=== PATIENT | male | born 1985 | race Caucasian/White ===

== ENCOUNTER 2017-01-12 17:57 | Emergency (ER) | payer OTHER ==
[2017-01-12 18:11] VITALS: PULSE 70
[2017-01-12] MEDS ORDERED: IOPAMIDOL (ISOVUE-300) 100 ML BTL ONE (18:33)
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
[2017-01-12] MEDS ORDERED: IBUPROFEN 600 MG TAB PO ONE (19:01)
[2017-01-12 22:18] VITALS: BP 124/80; RESP 16; TEMP 98.6; O2SAT 98
== END 2017-01-12 22:11 | disposition home or self-care (01) ==
DX: S22.080A Wedge compression fracture of T11-T12 vertebra, initial encounter for closed fracture (principal); V89.2XXA Person injured in unspecified motor-vehicle accident, traffic, initial encounter
CPT/HCPCS: Q9967

== ENCOUNTER → 2017-09-21 | Outpatient (CLI) | payer OTHER ==
--- NOTE | 2017-09-22 09:10 | CPEEG ---
[f rep st] ELECTROENCEPHALOGRAM ELECTROENCEPHALOGRAM. DATE OF STUDY: 09/21/2017 DATE OF INTERPRETATION: 09/21/2017. INTERPRETATION: Essentially normal EEG during wakefulness and sleep. There were no definite potentially epileptogenic abnormalities present during the recording. REPORT: This EEG contains 10 Hz alpha activity over the posterior head regions. There was no abnormal activation at rest, during photic stimulation hyperventilation. The patient became drowsy and fell into sustained sleep during the study. During sleep, the patient had symmetric and normal sleep architecture. This included vertex waves. There were occasional vertex waves with sharper morphology, than the baseline vertex waves. However, there was no definite epileptogenic activation during drowsiness or sleep. These findings were discussed with his primary neurologist, Dr. July Romano. If clinically indicated, prolonged inpatient video-EEG monitoring may be helpful in clarifying the nature of these findings. /[id number]/MODL MTDD
== END ==
LOC: FCPNEURO 12:15
PROVIDERS: ATTEND Psychiatry & Neurology Neurology
DX: R41.3 Other amnesia (principal)